=== PATIENT | male | born 1950 | race Caucasian/White ===

== ENCOUNTER 2019-03-02 17:01 | Inpatient (IN) ==
[2019-03-02] MEDS ORDERED: ZOFRAN IV PRN (18:05)
[2019-03-02] MEDS ORDERED: FLONASE NAS PRN (18:05)
[2019-03-02 18:42] LABS: BASO# 0.02 X1000 (0.0-0.2); BASO% 0.2 % (0.0-0.8); EOS# 0.04 X1000 (0.0-0.7); EOS% 0.3 % (0.0-10.0); HEMATOCRIT 39.5 % (42.0-52.0); HEMOGLOBIN 13.1 g/dL (14.0-18.0); IMM GRAN# 0.03 X1000 (0.0-0.04); IMM GRAN% 0.2 % (0.0-0.5); LYMPH# 0.36 X1000 (1.2-3.4); LYMPH% 2.8 % (20.5-51.1); MCH 28.7 PG (27-31); MCHC 33.2 g/dL (33-37); MCV 86.4 FL (81-99); MONO# 1.07 X1000 (0.11-0.59); MONO% 8.4 % (1.7-9.3); MPV 9.9 FL (7.4-10.4); NEUT# 11.15 X1000 (1.4-6.5); NEUT% 88.1 % (42.2-75.2); PLT 183 X1000 (130-400); RBC 4.57 XMIL (4.7-6.1); RDW 14.2 % (11.5-14.5); WBC 12.67 X1000 (4.8-10.8)
[2019-03-02 19:08] LABS: ALB/GLOB RATIO 1.8; ALBUMIN 4.3 g/dL (3.5-5.0); CALCIUM 9.3 mg/dL (8.8-10.2); CREATININE 1.3 mg/dL (0.7-1.2); POTASSIUM 3.9 mmol/L (3.5-5.1); TOTAL BILIRUBIN 1.16 mg/dL (0.20-1.00); TOTAL PROTEIN 6.7 g/dL (6.3-8.3)
[2019-03-02] MEDS: NS 1,000 ML IV SCH (19:10)
[2019-03-02] MEDS: ZOSYN 3.375 GM in NS 50 ML IV SCH (19:10)
[2019-03-02 19:34] LABS: C REACTIVE PROT QUANT 70.74 mg/L (0.00-5.00)
[2019-03-02 19:36] LABS: BANDS 10 % (0-1); LYMPHS 2 % (21-51); MONO 4 % (1-9); SEGS 84 % (42-75)
[2019-03-02 19:47] LABS: SED RATE 0 mm/hr (0-15)
--- NOTE | 2019-03-02 21:04 | HISTORY AND PHYSICAL ---
PRIMARY CARE PHYSICIAN: Dr. Cresencio Stephens. CHIEF COMPLAINT: Left hand swelling with erythema tracking to his left axilla. HISTORY OF PRESENT ILLNESS: A 68-year-old white male with past medical history significant for allergic rhinitis, anxiety, hypertension, coronary artery disease, reflux disease, hypertriglyceridemia, impaired fasting glucose, neurogenic bladder, and osteoarthritis presents for evaluation of above-mentioned symptoms. Current history of present illness began at approximately 3:30 p.m. yesterday. At that time, he suffered a cat bite to the dorsal aspect of his left hand. By 7:30 p.m., he noted localized swelling and erythema. The patient awoke this morning with increased swelling to the hand. Over the course of the day this erythema has tracked to the ventral and medial aspect of the arm into the axilla. Because of patient's rapidly progressive condition, he contacted my office. Patient was seen in the office and inpatient treatment was arranged. At present time, he denies systemic symptoms including fevers, chills, nausea, vomiting, shortness of breath, or chest discomfort. PAST MEDICAL HISTORY: 1. Diastasis recti. 2. Allergic rhinitis. 3. History of a anal fissure/external hemorrhoids status post surgical intervention in 2012. 4. Anxiety. 5. Intermittent headaches. 6. Hypertension. 7. Abnormal skin examination with multiple nevi. 8. Cervical spine pain status post surgical intervention in 1993. 9. History of chest discomfort with negative stress test in 2006 and 2008. 10. Colonic diverticulosis. 11. Coronary artery disease. 12. Reflux disease. 13. Hypertriglyceridemia. 14. Gastroparesis. 15. Impaired fasting glucose. 16. Low HDL. 17. Neurogenic bladder: 18. Osteoarthritis. 19. History of supraventricular tachycardia. 20. Umbilical hernia, status post surgical intervention in 2004. CURRENT MEDICATIONS: 1. Aspirin 81 mg daily. 2. [*]1% nasal solution twice daily. 3. Clonidine 0.1 mg 3 times daily. 4. Dicyclomine 20 mg 3 times daily. 5. Doxazosin 8 mg daily. 6. Lexapro 20 mg daily. 7. Fenofibrate 160 mg at bedtime. 8. Losartan 100 mg daily. 9. Metoprolol ER 50 mg at bedtime. 10. Singulair 10 mg daily as needed. 11. Nexium 40 mg daily. ALLERGIES: Patient states he is allergic to felodipine which causes edema, lisinopril which causes pruritus, metoclopramide which causes night sweats, and Norvasc which causes chills. SOCIAL HISTORY: Patient denies tobacco or illicit drug use. He rarely uses alcohol. 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 He exercises intermittently. FAMILY HISTORY: Patient's father passed at age 52 secondary to complications of an acute myocardial infarction. He had a history of a traumatic intrathoracic hematoma. Patient's mother passed at age 75 secondary to complications of acute myocardial infarction. She had a history of transient ischemic attacks and diabetes. Patient's brother passed at age 55 secondary to a pulmonary thromboembolism. He had a history of diabetes and osteoarthritis. REVIEW OF SYSTEMS: A 12-point review of systems was performed. Pertinent positives and negatives as noted in history present illness. PHYSICAL EXAMINATION: VITAL SIGNS: Temperature 100.3, heart rate 90, respirations 14, blood pressure is 127/98. GENERAL: Well nourished, well developed, no acute distress. HEENT: Normocephalic, atraumatic. Pupils equal, round, reactive to light. Extraocular muscles intact. Sclerae anicteric. [place]hoven conjunctivae. Oral and nasopharynx clear without exudate. NECK: Supple. No lymphadenopathy. No thyromegaly. No bruits auscultated. CARDIOVASCULAR: Regular rate and rhythm. No significant murmurs, rubs or gallops. PULMONARY: Clear to auscultation bilaterally. ABDOMEN: Soft, nontender, nondistended. Positive bowel sounds. EXTREMITIES: Moves all extremities well. No significant clubbing, cyanosis or edema. NEUROLOGIC: Cranial nerves 2-12 grossly intact. Motor and sensory grossly intact. PSYCHOLOGIC: Examination is appropriate. DERMATOLOGIC: Evaluation reveals puncture wounds to the dorsal aspect of the left hand with surrounding erythema, edema, and localized fever. Erythema tracks from the dorsal aspect of the hand to the plantar aspect of the hand and ventral wrist. Erythema tracks to the axilla. LABORATORY DATA: White blood cell count 12.67, hemoglobin 13.1, hematocrit 39.5, platelet count is 183,000. Differential includes 84% neutrophils, 10% bands, 2% lymphocytes, 4% monocytes. Sedimentation rate 0. Sodium 143, potassium 3.9, chloride 106, bicarb 24, BUN 26, creatinine 1.3, glucose 89, calcium 9.3, total bilirubin 1.16, total protein 6.7, albumin 4.3, alkaline phosphatase 34, AST 15, ALT 14, CRP 70.74. ASSESSMENT AND PLAN: A 68-year-old white male with a complicated past medical history as noted presents for evaluation of left upper extremity swelling, erythema, and localized fever. This injury began with a cat bite. The patient does have a rapidly progressive cellulitis with bandemia per CBC. Most likely organism is Pasteurella. Patient will be treated aggressively as an inpatient. 1. Admit to General Medicine. 2. Cat bite with associated rapidly progressive cellulitis - As above, likely organism is Pasteurella. We will check blood cultures x 2. We will start patient on Zosyn therapy. We will monitor patient's clinical course very closely as this has been rapidly progressive thus far. 3. Hypertension - Patient has longstanding disease. For now, we will continue his home regimen. Should patient's blood pressure demonstrate a significant decrease, we will adjust medications as necessary. 4. Coronary artery disease - Patient has known disease. We will continue his optimized medical and nonmedical management. 5. Reflux disease - we will continue patient on Nexium therapy. 6. Hypertriglyceridemia - We will continue patient on fenofibrate therapy. 7. Neurogenic bladder - The patient is currently being treated with intermittent self- catheterizations. We will continue this while hospitalized. 8. Fluid, electrolytes, electrolytes nutrition - We will monitor electrolytes. Saline lock IV. Regular diet. 9. Prophylaxis. Patient will be placed on subcu Lovenox. cc: Cresencio Stephens MD
[2019-03-02] MEDS: TYLENOL PO PRN (23:40)
[2019-03-02] MEDS: LOFIBRA PO SCH (23:40)
[2019-03-02] MEDS: TOPROL XL PO SCH (23:41)
[2019-03-02] MEDS: ASTELIN NASAL SPRAY NAS SCH ×2 (23:41→23:49)
[2019-03-02] MEDS: LOVENOX SUBQ SCH (23:42)
[2019-03-03] MEDS: ZOSYN 3.375 GM in NS 50 ML IV SCH ×4 (00:02→18:58)
[2019-03-03] MEDS: TYLENOL PO PRN ×2 (04:25→15:50)
[2019-03-03] MEDS: NEXIUM PO SCH (06:06)
[2019-03-03] MEDS: BENTYL PO SCH ×3 (09:55→18:56)
[2019-03-03] MEDS: COZAAR PO SCH (09:55)
[2019-03-03] MEDS: CATAPRES PO SCH ×4 (09:56→18:57)
[2019-03-03] MEDS: ASTELIN NASAL SPRAY NAS SCH ×3 (09:56→21:57)
[2019-03-03] MEDS: CARDURA PO SCH (09:56)
[2019-03-03] MEDS: LEXAPRO PO SCH (09:56)
[2019-03-03] MEDS: NS 1,000 ML IV SCH (18:55)
[2019-03-03] MEDS ORDERED: NS 1,000 ML ONE (19:07)
--- NOTE | 2019-03-03 19:40 | PROGRESS NOTE ---
DATE: 03/03/2019 SUBJECTIVE: Patient was originally seen this morning. At that time, patient noted stabilization of his left upper extremity erythema and swelling. He noted no significant improvement from last night. Throughout the day, patient states he did reasonably well. Thus far, he has tolerated Zosyn therapy well. This evening, patient continues to have considerable swelling. There appears to be a mild decrease in erythema. This does, however, continue to track to the axilla. He had a fever to 101.1 overnight. He has been afebrile since 7 this morning. He denies nausea, vomiting, shortness of breath, or chest discomfort. OBJECTIVE: T-max 101.1 degrees, heart rate 74 to 102, respirations 17 to 18, blood pressure 105 to 130 over 44 to 98.General: Well nourished, well developed, no acute distress. Cardiovascular: Regular rate and rhythm. No significant murmurs, rubs, or gallops. Pulmonary: Clear to auscultation bilaterally. Abdomen: Soft, nontender, nondistended. Positive bowel sounds. Extremities: Moves all extremities well. No significant clubbing, cyanosis, or edema. Dermatologic: Evaluation reveals significant erythema and induration of the left hand with erythema tracking to the axilla. Localized fever is present. Symptoms are slightly improved from yesterday. LABORATORY DATA: None. ASSESSMENT AND PLAN: 1. Cat bite with associated cellulitis-likely organism is pasteurella. Blood cultures thus far are negative. We will continue Zosyn therapy as he is tolerating well. As described, symptoms have stabilized, but have not improved considerably to date. He is currently afebrile. 2. Hypertension-patient's blood pressure is reasonably controlled on his current regimen. 3. Coronary artery disease-we will remain aware. We will continue optimize medical and nonmedical management. 4. Reflux disease-we will continue patient on Nexium therapy. 5. Hypertriglyceridemia-we will continue fenofibrate therapy. 6. Neurogenic bladder-we will continue intermittent self-catheterizations. 7. Disposition-at this point, patient continues to require custodial care in the hospital setting. We will plan discharge home once appropriate. cc: Crseencio Stephens MD
[2019-03-03] MEDS: LOFIBRA PO SCH (21:56)
[2019-03-03] MEDS: TOPROL XL PO SCH (21:56)
[2019-03-03] MEDS: LOVENOX SUBQ SCH (21:57)
[2019-03-04] MEDS: ZOSYN 3.375 GM in NS 50 ML IV SCH ×4 (01:43→18:45)
[2019-03-04] MEDS: NEXIUM PO SCH (06:10)
[2019-03-04 07:34] LABS: BASO# 0.02 X1000 (0.0-0.2); BASO% 0.1 % (0.0-0.8); EOS# 0.14 X1000 (0.0-0.7); HEMATOCRIT 35.8 % (42.0-52.0); HEMOGLOBIN 11.5 g/dL (14.0-18.0); LYMPH# 1.07 X1000 (1.2-3.4); LYMPH% 7.5 % (20.5-51.1); MCH 28.2 PG (27-31); MCHC 32.1 g/dL (33-37); MCV 87.7 FL (81-99); MONO# 0.79 X1000 (0.11-0.59); MONO% 5.5 % (1.7-9.3); NEUT# 12.24 X1000 (1.4-6.5); NEUT% 85.9 % (42.2-75.2); PLT 182 X1000 (130-400); RBC 4.08 XMIL (4.7-6.1); RDW 14.6 % (11.5-14.5); WBC 14.26 X1000 (4.8-10.8)
[2019-03-04 07:37] LABS: ALB/GLOB RATIO 1.1; ALBUMIN 3.3 g/dL (3.5-5.0); CALCIUM 8.1 mg/dL (8.8-10.2); CREATININE 1.3 mg/dL (0.7-1.2); POTASSIUM 3.8 mmol/L (3.5-5.1); TOTAL BILIRUBIN 0.43 mg/dL (0.20-1.00); TOTAL PROTEIN 6.3 g/dL (6.3-8.3)
[2019-03-04] MEDS: CATAPRES PO SCH ×3 (08:26→17:25)
[2019-03-04] MEDS: BENTYL PO SCH ×3 (08:26→17:25)
[2019-03-04] MEDS: LEXAPRO PO SCH (08:26)
[2019-03-04] MEDS: COZAAR PO SCH (08:26)
[2019-03-04] MEDS: CARDURA PO SCH (08:26)
[2019-03-04] MEDS ORDERED: VANCOMYCIN IV PER PHARMACY MISC SCH (09:30)
--- NOTE | 2019-03-04 10:01 | PROGRESS NOTE ---
DATE: 03/04/2019 SUBJECTIVE: This morning patient continues to complain of considerable pain in his left upper extremity. He has persistent swelling, as well as erythema. Overnight, he complained of intermittent episodes of chills and diaphoresis. His temperature was documented as high as 99.0. He denies nausea, vomiting, shortness of breath, or chest discomfort. Thus far, he has tolerated Zosyn well. OBJECTIVE: Vital Signs: T-max 99.0 degrees, heart rate 68 to 85, respirations 16 to 19, blood pressure 114-138/40-62. General: Well nourished, well developed, no acute distress. Cardiovascular: Regular rate and rhythm. No significant murmurs, rubs, or gallops. Pulmonary: Clear to auscultation bilaterally. Abdomen: Soft, nontender, nondistended. Positive bowel sounds. Extremities: Moves all extremities well. No significant clubbing, cyanosis, or edema to the lower extremities. Dermatologic: Evaluation reveals erythema, induration, and localized fever to the left wrist. Erythema is tracking up towards the axilla, although is improved from admission. LABORATORY DATA: White blood cell count 14.26, hemoglobin 11.5, hematocrit 35.8, platelet count 182,000. Sodium 144, potassium 3.8, chloride 109, bicarbonate 27. BUN 22, creatinine 1.3, glucose 123, calcium 8.1, total bilirubin 0.43, total protein 6.3, albumin 3.3, alkaline phosphatase 39, AST 28, ALT 28. ASSESSMENT AND PLAN: 1. Cat bite with associated cellulitis--as described in previous notes, the most likely organism is pasteurella. Interestingly, however, patient has not demonstrated significant improvement with Zosyn therapy. White blood cell count has increased from admission. At this point, I do feel broadening coverage for the possibility of methicillin-resistant Staphylococcus aureus is most appropriate. We will add vancomycin therapy. We will have this dosed per pharmacy. We will continue to follow his clinical course closely. Should he have persistence of symptoms, we will consider additional progressive infectious etiologies, including osteomyelitis and abscess formation. 2. Hypertension--patient's blood pressure is reasonably controlled on his current regimen. We will continue this. 3. Coronary artery disease--patient has longstanding disease per CT coronary calcium score. He is treated with optimum medical and nonmedical management. He is asymptomatic. 4. Reflux disease--we will continue patient on Nexium therapy. 5. Hypertriglyceridemia--we will continue fenofibrate therapy. 6. Neurogenic bladder--patient is currently being treated with self-intermittent catheterizations. He remains asymptomatic. 7. Disposition--at this point, patient continues to require halfway care in a hospital setting. We will plan discharge home once appropriate. cc: Cresencio Stephens MD
[2019-03-04] MEDS: ASTELIN NASAL SPRAY NAS SCH ×2 (10:17→20:52)
[2019-03-04] MEDS ORDERED: VANCOMYCIN 2,000 MG in NS 500 ML IV ONE (11:00)
[2019-03-04] MEDS: NS 1,000 ML IV SCH (18:45)
[2019-03-04] MEDS: TYLENOL PO PRN (20:39)
[2019-03-04] MEDS: TOPROL XL PO SCH (21:09)
[2019-03-04] MEDS: LOVENOX SUBQ SCH (21:09)
[2019-03-04] MEDS: LOFIBRA PO SCH (21:09)
[2019-03-05] MEDS: ZOSYN 3.375 GM in NS 50 ML IV SCH ×4 (05:15→20:13)
[2019-03-05] MEDS: NEXIUM PO SCH (06:15)
--- NOTE | 2019-03-05 10:03 | PROGRESS NOTE ---
DATE: 03/05/2019 SUBJECTIVE: Unfortunately, patient continues to have swelling and pain to his left wrist despite antibiotic intervention. Yesterday, vancomycin was added to his Zosyn therapy. Temperature maximum yesterday remained borderline at 100.1. He continues to have considerable swelling, erythema, and induration. He does note a slight decrease in his symptoms. He denies nausea, vomiting, shortness of breath, or chest discomfort. OBJECTIVE: Vitals: Temperature maximum 100.1 degrees, heart rate 67 to 89, respirations 16 to 19, blood pressure 139 to 145 over 57 to 69. General: Well nourished, well developed, in no acute distress. Cardiovascular: Regular rate and rhythm. No significant murmurs, rubs, or gallops. Pulmonary: Clear to auscultation bilaterally. Abdomen: Soft, nontender, nondistended. Positive bowel sounds. Extremities: Moves all extremities well. No significant clubbing, cyanosis, or edema with exception of dermatologic examination of the left upper extremity as described below. Dermatologic: Patient continues to have erythema, induration, and localized fever to the left dorsal wrist. Erythema does tract toward the axilla, although is decreased from previous. Patient's induration also is modestly decreased. LABORATORY DATA: None. ASSESSMENT AND PLAN: 1. Cat bite with associated cellulitis-as described above, patient's symptoms are modestly improved from yesterday. He does, however, continue to have low-grade fevers. White count yesterday had increased from admission. Vancomycin was added to Zosyn. At this point, I continue to expect this is secondary to pasteurella. Vancomycin was added for the possibility of MRSA. We will continue his current regimen for now. We will repeat laboratory data in the morning. If his white count and fevers remain borderline, we will consider CT scan of the wrist to rule out underlying osteomyelitis or abscess formation. 2. Hypertension. Patient's blood pressure is modestly elevated with his home regimen. For now, we will continue this. 3. Coronary artery disease-patient is treated with optimum medical and nonmedical management. He is asymptomatic. 4. Reflux disease-we will continue patient on Nexium therapy. Symptoms are controlled. 5. Hypertriglyceridemia-fenofibrate has been continued. He is tolerating this well. 6. Neurogenic bladder-symptoms are stable with intermittent self catheterizations. 7. Disposition-at this point, patient continues to require [facility]dc care in a hospital setting. We will plan discharge home once appropriate. cc: Cresencio Stephens MD
[2019-03-05] MEDS: BENTYL PO SCH ×3 (10:31→18:42)
[2019-03-05] MEDS: CARDURA PO SCH (10:31)
[2019-03-05] MEDS: LEXAPRO PO SCH (10:32)
[2019-03-05] MEDS: COZAAR PO SCH (10:32)
[2019-03-05] MEDS: CATAPRES PO SCH ×3 (10:32→18:42)
[2019-03-05] MEDS: ASTELIN NASAL SPRAY NAS SCH ×2 (10:35→20:22)
[2019-03-05] MEDS: VANCOMYCIN 1,500 MG in NS 250 ML IV SCH (12:27)
[2019-03-05] MEDS: TYLENOL PO PRN (14:56)
[2019-03-05] MEDS: NS 1,000 ML IV SCH (18:41)
[2019-03-05] MEDS: LOVENOX SUBQ SCH (20:13)
[2019-03-05] MEDS: TOPROL XL PO SCH (20:14)
[2019-03-05] MEDS: LOFIBRA PO SCH (20:22)
[2019-03-06] MEDS: ZOSYN 3.375 GM in NS 50 ML IV SCH ×4 (04:05→20:29)
[2019-03-06] MEDS: NEXIUM PO SCH (06:10)
[2019-03-06 07:31] LABS: BASO# 0.03 X1000 (0.0-0.2); BASO% 0.3 % (0.0-0.8); EOS# 0.09 X1000 (0.0-0.7); EOS% 0.9 % (0.0-10.0); HEMATOCRIT 33.9 % (42.0-52.0); HEMOGLOBIN 11.3 g/dL (14.0-18.0); IMM GRAN# 0.12 X1000 (0.0-0.04); IMM GRAN% 1.2 % (0.0-0.5); LYMPH# 1.02 X1000 (1.2-3.4); LYMPH% 10.1 % (20.5-51.1); MCH 28.7 PG (27-31); MCHC 33.3 g/dL (33-37); MONO# 0.87 X1000 (0.11-0.59); MONO% 8.6 % (1.7-9.3); MPV 11.1 FL (7.4-10.4); NEUT# 7.99 X1000 (1.4-6.5); NEUT% 78.9 % (42.2-75.2); PLT 206 X1000 (130-400); RBC 3.94 XMIL (4.7-6.1); WBC 10.12 X1000 (4.8-10.8)
[2019-03-06 07:55] LABS: AGAP 11; ALB/GLOB RATIO 1.3; ALBUMIN 3.5 g/dL (3.5-5.0); ALKALINE PHOSPHATASE 49 U/L (32-122); BUN 12 mg/dL (8-22); CALCIUM 8.8 mg/dL (8.8-10.2); CHLORIDE 107 mmol/L (98-107); COSMO 283; CREATININE 1.1 mg/dL (0.7-1.2); ESTIMATED GFR > 60; GLUCOSE 103 mg/dL (70-104); GOT 25 U/L (10-34); GPT 33 U/L (10-44); POTASSIUM 3.5 mmol/L (3.5-5.1); SODIUM 142 mmol/L (136-145); TCO2 24 mmol/L (25-35); TOTAL BILIRUBIN 0.61 mg/dL (0.20-1.00); TOTAL PROTEIN 6.3 g/dL (6.3-8.3)
[2019-03-06] MEDS: CARDURA PO SCH (09:47)
[2019-03-06] MEDS: BENTYL PO SCH ×3 (09:47→18:15)
[2019-03-06] MEDS: LEXAPRO PO SCH (09:47)
[2019-03-06] MEDS: CATAPRES PO SCH ×3 (09:48→18:15)
[2019-03-06] MEDS: COZAAR PO SCH (09:48)
[2019-03-06] MEDS: ASTELIN NASAL SPRAY NAS SCH ×2 (10:16→20:30)
[2019-03-06] MEDS: VANCOMYCIN 1,500 MG in NS 250 ML IV SCH (10:16)
[2019-03-06] MEDS: NS 1,000 ML IV SCH (18:17)
--- NOTE | 2019-03-06 19:59 | PROGRESS NOTE ---
DATE: 03/06/2019 SUBJECTIVE: The patient was originally seen this morning. At that time, patient finally noted some decrease in swelling and pain to the wrist. Over the course of the day, his overall condition continued to slowly improve. This evening, he has decreasing erythema as well as decreasing swelling. He denies systemic symptoms including fevers, chills, nausea, and vomiting. OBJECTIVE: T-max 99.4 degrees, heart rate 66 to 71, respirations 16 to 18, blood pressure 132 to 162 over 61 to 70.General: Well nourished, well developed, in no acute distress. Cardiovascular: Regular rate and rhythm. No significant murmurs, rubs, or gallops. Pulmonary: Clear to auscultation bilaterally. Abdomen: Soft, nontender, nondistended. Positive bowel sounds. Extremities: Moves all extremities well. No significant clubbing, cyanosis, or edema. Dermatologic: Evaluation reveals improving erythema and induration of the left wrist. LABORATORY DATA: White blood cell count 10.12, hemoglobin 11.3, hematocrit 33.9, platelet count 206,000. Sodium 142, potassium 3.5, chloride 107, bicarb 24, BUN 12, creatinine 1.1, glucose 103, calcium 8.8, total bilirubin 0.61, total protein 6.3, albumin 3.5, alkaline phosphatase 49, AST 25, ALT 33. ASSESSMENT AND PLAN: 1. Cat bite with associated cellulitis-after prolonged antibiotic intervention, patient has begun demonstrating significant improvement. This evening, patient has decreasing erythema as well as decreasing edema. We will continue vancomycin and Zosyn therapy overnight. Should patient's condition continue to improve, he likely will be prepared for discharge in the morning. 2. Hypertension. Patient's blood pressure is also increased over the course of the last 24 hours. This likely is a consequence of better control of his infection. We will continue his home regimen for now. 3. Coronary artery disease-we will continue patient on optimized medical and nonmedical management. 4. Reflux disease-we will continue patient on Nexium therapy. 5. Hypertriglyceridemia-we will continue patient on fenofibrate. 6. Neurogenic bladder-symptoms are controlled with intermittent self-catheterizations. 7. Disposition-at this point, patient continues to require [facility] care in a hospital setting. We will plan discharge home once appropriate, likely in the a.m. cc: Cresencio Stephens MD
[2019-03-06] MEDS: TOPROL XL PO SCH (20:30)
[2019-03-06] MEDS: LOVENOX SUBQ SCH (20:30)
[2019-03-06] MEDS: LOFIBRA PO SCH (20:30)
[2019-03-06] MEDS: TYLENOL PO PRN (20:39)
[2019-03-07] MEDS: ZOSYN 3.375 GM in NS 50 ML IV SCH (02:27)
[2019-03-07] MEDS: NEXIUM PO SCH (06:34)
[2019-03-07 07:33] VITALS: BP 156/76
[2019-03-07] MEDS ORDERED: PNEUMOVAX 23 IM ONE (09:17)
--- NOTE | 2019-03-07 21:42 | DISCHARGE SUMMARY ---
ADMISSION DATE: 03/02/2019 DISCHARGE DATE: 03/07/2019 ADMISSION DIAGNOSIS: 1. Left hand swelling. 2. Erythema tracking from the left hand to the left axilla. DISCHARGE DIAGNOSES: 1. Cat bite with associated cellulitis, improving. 2. Hypertension, present on arrival. 3. Coronary artery disease, present on arrival. 4. Reflux disease, present on arrival. 5. Hypertriglyceridemia, present on arrival. 6. Neurogenic bladder, present on arrival. CONSULTATIONS: None. PROCEDURES: None. HISTORY AND PHYSICAL EXAMINATION: See admit note. PHYSICAL EXAMINATION PRIOR TO DISCHARGE: Temperature 98.6 degrees, heart rate 65, respirations 16, blood pressure is 156/76. General: Well nourished, well developed, no acute distress. Cardiovascular: Regular rate and rhythm. No significant murmurs, rubs, or gallops. Pulmonary: Clear to auscultation bilaterally. Abdomen: Soft, nontender, nondistended. Positive bowel sounds. Extremities: Moves all extremities well. No significant clubbing, cyanosis, or edema. Dermatologic: Evaluation reveals improving erythema and swelling to the left wrist. No evidence of tracking erythema is identified. LABORATORY DATA: Prior to discharge: None. HOSPITAL COURSE: Patient was admitted as per history and physical examination. Hospital course per condition as follows. 1. Cat bite with associated cellulitis-upon admission, patient was noted to have a rapidly progressive cellulitis tracking to his new from his wrist to his left axilla. Because of the etiology being a cat bite, pasteurella was the most likely organism. Patient was started on Zosyn therapy. Unfortunately, despite this, patient's cellulitis continued. On day 3 of hospitalization because of a lack of significant improvement, vancomycin was added. After this addition, patient's condition improved considerably. At time of discharge, patient had only mild swelling and erythema. The patient will be discharged home on 5 additional days of doxycycline therapy. 2. Hypertension-the patient's blood pressure remained borderline controlled throughout hospitalization. We will continue his home regimen. 3. Coronary artery disease-patient has longstanding disease. He is optimized medically. He remained asymptomatic while hospitalized. 4. Reflux disease-patient was continued on Nexium therapy while hospitalized. Symptoms remained controlled. 5. Hypertriglyceridemia-patient was maintained on fenofibrate therapy while hospitalized. We will plan to follow this as an outpatient. 6. Neurogenic bladder-patient was continued on intermittent self-catheterizations with success while hospitalized. DISCHARGE CONDITION: Good. DISPOSITION: Discharged to home. MEDICATIONS: 1. Doxycycline 100 mg twice daily for 5 days. 2. Clonidine 0.1 mg 3 times daily. 3. Fenofibrate 160 mg at bedtime. 4. Dicyclomine 20 mg 3 times daily. 5. Nexium 40 mg daily. 6. Azelastine nasal spray as needed. 7. Metoprolol ER 1/2 tablet daily. 8. Losartan 100 mg daily. 9. Lexapro 20 mg daily. 10. Doxazosin 8 mg daily. 11. Fluticasone nasal spray as needed. FOLLOWUP: The patient is to follow up with me in approximately 1 to 2 weeks. cc: Cresecnio Stephens MD
== END 2019-03-07 10:00 | disposition home or self-care (01) | DRG 603 ==
LOC: DIRADM 17:01 → 3N 17:55
PROVIDERS: ADMIT Internal Medicine; ATTEND Internal Medicine
CPT/HCPCS: 80053; 85025; 85651; 86140; 87040; 90732; A9270; J1650; J2405; J2543; J3370; J7030; J7040; J7050